=== PATIENT | male | born 1965 | race Caucasian/White ===

== ENCOUNTER → 2019-04-26 08:40 | Outpatient (CLI) | payer MEDICAID | END | disposition home or self-care (01) | LOC: D.HCCARDIO 08:40 | PROVIDERS: ATTEND Internal Medicine Cardiovascular Disease | DX: I20.9 Angina pectoris, unspecified (principal) ==

== ENCOUNTER 2019-06-26 07:38 | Outpatient (CLI) | payer MEDICAID ==
[~2019-06-26] VITALS: Ht 172.7 cm; Wt 87.3 kg
--- NOTE | ~2019-06-26 | HP ---
PATIENT: MARGI MALDONADO MEDICAL RECORD: [id number] ACCOUNT: [id number] LOCATION:[facility] : 65 ADMISSION DATE: 06/26/19 PCP: DAVID PARKINSON MD HISTORY AND PHYSICAL EXAMINATION ADMITTING DIAGNOSES: 1. Chest pain compatible with angina. 2. Hypertension. 3. Abnormal nuclear stress test. 4. Leg pain compatible with claudication. 5. Hypertension. HISTORY OF PRESENT ILLNESS: Mr. Maldonado has no history of ischemic heart disease. He has been having episodes of chest pain, chest discomfort compatible with angina. Risk stratified with stress testing revealing an abnormal nuclear stress test suggestive of multivessel disease, now brought for cardiac catheterization as well he has had claudication, right leg greater than left. PHYSICAL EXAMINATION: CONSTITUTIONAL/GENERAL APPEARANCE: Well nourished, well developed, appears stated age. EYES: Lids and conjunctivae noninjected. No discharge. No pallor. ENT: Lips within normal limit. No cyanosis. No pallor. NECK: Carotid arteries, bilateral normal upstroke. No bruits. No thrills. No jugular venous pressure or distention. CERVICAL LYMPH NODES: Nontender. Nonenlarged. THYROID: Not enlarged. No nodules. CARDIOVASCULAR: Precordial exam, nondisplaced. No heaves or pericardial thrills. Rate and rhythm, regular. Heart sounds, normal S1, normal S2. No S3, no gallop, no rub. Systolic murmur, not heard. Diastolic murmur, not heard. RESPIRATORY: Respiratory effort, unlabored. Normal curvature. No thoracic deformity. No chest wall tenderness. Percussion, resonant. Auscultation, clear. No wheezes, no rales, no rhonchi. ABDOMEN: Soft, nondistended, nontender. No abdominal pain, no vomiting and normal appetite. MUSCULOSKELETAL: No joint tenderness, normal gait, normal tone. SKIN: Warm and dry. OVERALL IMPRESSION: Angina with abnormal nuclear stress test, claudication. We will proceed with coronary angiography and peripheral angiography. Further care depends upon the findings of the angiography. TRANSINT:[id number] Voice Confirmation ID: [id number] DOCUMENT ID: [id number] KHALIF ALBRECHT MD CC: [id number] DICTATION DATE: 06/26/19 1024 PROPOSAL ENGINEER: 06/26/19 111[id number] [place], [place] [id number]
--- NOTE | ~2019-06-26 | HEMODYNAMI ---
PATIENT:MARGI MAURER MEDICAL RECORD: [id number] : 65 LOCATION:[facility] ADMISSION DATE: 06/26/19 Generatedon:06/26/201910:29 Patient name: MARGI MAURER Patient #: [id number] SSN: [id number] : 1965 Date of study: 06/26/2019 Page: Of Hemodynamic Procedure Report Patient Data Patient Demographics Procedure consent was obtained First Name: MARGI Gender: Male Last Name: ERASTO : 1965 Patient #: [id number] Age: 54 year(s) Race: Unknown SSN: [id number] Additional ID: [id number] Contact details [address]: [address] [place] [address] State: [place] City: [place] Zip code: [address] Past Medical History Performed procedures and imaging results Date Procedure Procedure Results Comments Stress testing Positive->Intermediate with SPECT MPI risk Allergies: No known allergies Admission Admission Data Admission Date: 06/26/2019 Admission Time: 7:38 Arrival Date: 06/26/2019 Arrival Time: 0:00 Height (in.): 67.72 BSA: 2 (m2) Height (cm.): 172 BMI: 29.41 (kg/m2) Weight (lbs.): 191.8 Weight (kg.): 87 Lab Results Lab Result Date: 06/26/2019 Lab Result Time: 0:00 Biochemistry Name Units Result Min Max BUN mg/dl 19 --(----)*- 7 18 Creatinine mg/dl 1 --(--*-)-- 0.6 1.3 eGFR ml/min 82.68720 -*(----)-- 90 120 NONAFRICAN CBC Name Units Result Min Max Hematocrit % 49 --(--*-)-- 42 54 Hemoglobin g/dl 16.9 --(---*)-- 13.5 17.5 Procedure Procedure Types Cath Procedure Diagnostic Procedure LHC LHC w/Coronaries Peripheral Cath Diagnostic Procedure Substance Abuse Technician Peripheral Procedures Xmmyf-Vssstcf-Csm-Off AFRO (Diagnostic) Procedure Description Procedure Date Procedure Date: 06/26/2019 Procedure Start Time: 10:15 Procedure End Time: 10:25 Procedure Staff Name Function Chava Aguirre MD Performing Physician Melinda Baron RT Scrub Jasper Muhammad RN Nurse Paulette Greenwood RN Nurse Espinoza Swanson RT Monitor Procedure Data Cath Procedure Fluoroscopy Diagnostic fluoroscopy Total fluoroscopy Time: 1.2 time: 1.2 min min Diagnostic fluoroscopy Total fluoroscopy dose: 340 dose: 340 mGy mGy Contrast Material Contrast Material Type Amount (ml) Isovue 300 86 Entry Location Entry Primary Successful Side Size Upsize Upsize Entry Closure Succes sful Closure Location (Fr) 1 (Fr) 2 (Fr) Remarks Device Remarks Femoral Right 5 Fr Exoseal artery Estimated blood loss: 10 ml Diagnostic catheters Device Type Used For End Catheter Placement MULTIPACK Pigtail 5 Fr Procedure catheter MULTIPACK JL 4.0 5Fr Procedure catheter MULTIPACK 3DRC 5Fr Procedure catheter MULTIPACK Pigtail 5 Fr Procedure catheter Procedure Complications No complications Procedure Medications Medication Administration Route Dosage Oxygen etCO2 Nasal cannula 2 l/min Heparin Flush Bag added to field 2 bags (1000units/500ml NS) 0.9% NaCl I.V. 100 ml/hr Lidocaine 2% added to field 20 Versed I.V. 2 mg Fentanyl I.V. 50 mcg Versed I.V. 2 mg Fentanyl I.V. 50 mcg Versed I.V. 2 mg Hemodynamics Rest BSA: 2 (m2) HGB: 16.9 (g/dl) O2 Consumption: Estimated: 231.72 (ml/min) O2 Consu mption indexed: Estimated:115.86 (ml/min/m) Heart Rate: 62 (bpm) Snapshots Pre Cath Intra NCS Post Cath Vital Signs Time Heart Resp SPO2 etCO2 NIBP (mmHg) Rhythm Pain Sedation Rate (ipm) (%) (mmHg) Status Level (bpm) 9:31:57 57 20 99 0 65/44(55) NSR 0 (11) 10(A) , No pain 9:36:56 53 18 98 0 126/82(98) NSR 0 (11) 10(A) , No pain 9:41:55 59 18 97 0 122/77(94) NSR 0 (11) 10(A) , No pain 9:46:11 69 19 96 0 124/72(104) NSR 0 (11) 10(A) , No pain 9:50:27 65 21 99 0 120/73(98) NSR 0 (11) 10(A) , No pain 9:54:41 68 17 95 0 122/74(89) NSR 0 (11) 10(A) , No pain 9:58:57 63 18 97 0 121/77(86) NSR 0 (11) 10(A) , No pain 10:03:09 74 22 95 0 113/75(97) NSR 0 (11) 10(A) , No pain 10:07:21 64 20 95 0 126/76(95) NSR 0 (11) 10(A) , No pain 10:11:35 61 18 94 0 122/74(90) NSR 0 (11) 10(A) , No pain 10:15:53 61 19 94 0 122/67(84) NSR 0 (11) 9(A) , No pain 10:20:07 62 10 95 0 135/77(106) NSR 0 (11) 9(A) , No pain 10:23:25 69 12 95 0 132/70(110) NSR 0 (11) 10(A) , No pain Medications Time Medication Route Dose Verified Delivered Reason Notes Effectiveness by by 9:31:02 Oxygen etCO2 2 l/min Paulette Paulette for low 02 Nasal Greenwood Greenwood sats cannula RN RN 9:31:19 Heparin Flush added 2 bags Paulette Paulette Per Bag to Greenwood Greenwood protocol (1000units/500ml field RN RN NS) 9:32:02 0.9% NaCl I.V. 100ml/hr Paulette Paulette Per Greenwood Greenwood physician RN RN 9:32:21 Lidocaine 2% added 20ml Paulette Chava for local to vial Krystyna Aguirre MD anesthetic RN 10:11:18 Versed I.V. 2 mg Paulette Paulette for Greenwood Greenwood sedation RN RN 10:11:26 Fentanyl I.V. 50 mcg Paulette Paulette for Greenwood Greenwood sedation RN RN 10:15:18 Versed I.V. 2 mg Paulette Paulette for Greenwood Greenwood sedation RN RN 10:15:23 Fentanyl I.V. 50 mcg Paulette Paulette for Greenwood Greenwood sedation RN RN 10:19:54 Versed I.V. 2 mg Paulette Greenwood sedation RN deck engine operator Log Time Note 9:11:42 Informed consent obtained and on chart 9:12:09 Procedure Status Elective Heart Cath (OP). 9:12:10 Time tracking: Stay late (Procedures after 5:00pm) 9:12:15 Plan of Care:Hemodynamics will remain stable., Cardiac rhythm will remain stable., Comfort level will be maintained., Respiratory function will remain adequate., Patient/ family verbilizes understanding of procedure., Procedure tolerated without complication., Recovers from procedure without complications.. 9:12:23 H&P Date Dictated: 06/26/2019 New H&P dictated by physician.. 9:13:43 Patient allergic to No known allergies 9:14:09 Lab Result : BUN 19 mg/dl 9:14:09 Lab Result : Creatinine 1 mg/dl 9:14:09 Lab Result : eGFR NONAFRICAN 82.86926 ml/min 9:14:09 Lab Result : Hemoglobin 16.9 g/dl 9:14:09 Lab Result : Hematocrit 49 % 9:14:21 Melinda Baron RT(R) (CV) sent for patient. Start room use. 9:14:58 Patient Weight : 191.8 lbs 9:15:07 Patient Height : 67.72 inches 9:15:10 Arrival Date: 06/26/2019 12:00:00 AM 9:18:27 Stress Test: yes; abnormal MULTIVESSEL 9:21:16 Risk of Mortality: .1 9:21:18 Risk of blood transfusion: .1 9:21:20 Risk of DIO: .2 9:25:29 Patient received from Pre/Post Procedure Room to CCL 1 Alert and oriented. Tansferred to table in Supine position. 9:25:32 Warm blankets applied, and tequila hugger turned on for patient comfort. 9:25:32 Correct patient and procedure confirmed by team. 9:25:33 ECG and BP/O2 sat monitors applied to patient. 9:30:23 Vital chart was started 9:31:02 Oxygen 2 l/min etCO2 Nasal cannula was administered by Paulette Greenwood RN; for low 02 sats; Verbal order read back and verified. 9:31:19 Heparin Flush Bag (1000units/500ml NS) 2 bags added to field was administered by Paulette Greenwood RN; Per protocol; Verbal order read back and verified. 9:32:02 0.9% NaCl 100ml/hr I.V. was administered by Paulette Greenwood RN; Per physician; Verbal order read back and verified. 9:32:21 Lidocaine 2% 20ml vial added to field was administered by Chava Aguirre MD; for local anesthetic; Verbal order read back and verified. 9:35:35 Baseline sample Acquired. 9:35:40 Rhythm: sinus rhythm 9:35:42 Full Disclosure recording started 9:35:43 Pre-procedure instructions explained to patient. 9:35:44 Pre-op teaching completed and patient verbalized understanding. 9:35:46 Family in waiting room. 9:35:53 Patient NPO since Midnight. 9:35:55 Is the patient allergic to Iodine/contrast media? No. 9:36:23 ACC The patient was administered the following blood thiners within the last 24 hours: None 9:36:25 Patient diabetic? No. 9:36:28 Previous problem with sedation/anesthesia? No ? 9:36:29 Snore? Yes 9:36:30 Sleep apnea? No 9:36:31 Deviated septum? No 9:36:32 Opens mouth fully? Yes 9:36:32 Sticks out tongue? Yes 9:36:34 Airway obstruction? No ? 9:36:36 Dentures? No ? 9:36:45 Pre procedure: right dorsailis pedis pulse 1+ Palpable, but thready & weak; easily obliterated 9:36:47 Pre procedure: left dorsailis pedis pulse 2+ Normal; easily identifiable; not easily obliterated 9:36:49 Patient pain scale 0/10 ?. 9:36:54 IV patent on arrival in left forearm with 0.9% NaCl at [facility]. 9:36:56 Lab results completed and on chart. 9:37:00 Bilateral groins area was prepped with chlora-prep and draped in sterile fashion 9:37:01 Alarms reviewed by RCriss N. 9:37:01 Sharps counted by scrub and verified by R.N. 10:10:19 Physician arrived 10::19 --------ALL STOP TIME OUT------ 10:10:20 Final Timeout: patient, procedure, and site verified with staff and physician. All members of the team are in agreement. 10:10:22 Bilateral groins site verified by team. 10:10:27 Fire Safety Assessment: A--An alcohol-based skin anteseptic being used preoperatively., C--Open oxygen or nitrous oxide is being used., D--An ESU, laser, or fiber-optic light is being used. 10:10:34 Physical assessment completed. ASA score P 2 - A patient with mild systemic disease as per Chava Aguirre MD. 10:10:37 2) 60-89 Mildly reduced kidney function, and other findings (as for stage 1) point to kidney disease. 10:10:41 Maximum allowable contrast dose (3.7 X eGFR X 0.75)230 ml. 10:10:46 Sedation plan: IV Moderate Sedation Medication:Versed, Fentanyl 10:11:18 Versed 2 mg I.V. was administered by Paulette Greenwood RN; for sedation; Verbal order read back and verified. 10:11:26 Fentanyl 50 mcg I.V. was administered by Paulette Greenwood RN; for sedation; Verbal order read back and verified. 10:11:31 Use device set Femoral Dx 10:11:33 Tegaderm 4 x 4 (1626W) opened to sterile field. 10:11:34 ACIST Manifold (64387) opened to sterile field. 10:11:34 ACIST Hand Control (70916) opened to sterile field. 10:11:35 ACIST Syringe (28495) opened to sterile field. 10:11:36 Bag Decanter (2002S) opened to sterile field. 10:11:36 Medline Cath Pack ([id number]) opened to sterile field. 10:11:38 DIAGNOSTIC Multipack 5Fr catheter set (FI8583) opened to sterile field. 10:11:39 SHEATH 5FR [place] (WID972) opened to sterile field. 10:11:40 EMERALD Guide Wire (892-078) opened to sterile field. 10:14:51 Procedure started. 10:15:00 Local anesthetic to left femerol artery with Lidocaine 2% by Chava Aguirre MD.INITIAL ACCESS ONLY 10:15:18 Versed 2 mg I.V. was administered by Paulette Greenwood RN; for sedation; Verbal order read back and verified. 10:15:23 Fentanyl 50 mcg I.V. was administered by Paulette Greenwood RN; for sedation; Verbal order read back and verified. 10:15:55 A 5 Fr sheath was inserted into the Right Femoral artery 10:16:19 A MULTIPACK Pigtail 5 Fr catheter was advanced over the wire and used for Procedure. 10:16:49 LV angiography performed. 10:16:52 LV gram done using CHOU 10:17:02 EF : 55 % 10:17:07 Injector settings: Ml/sec: 10, Volume: 20, 10:17:52 Catheter removed. 10:17:58 A MULTIPACK JL 4.0 5Fr catheter was advanced over the wire and used for Procedure. 10:18:33 LCA angiography performed. 10:18:36 ACCDominant side:Left 10:18:38 Catheter removed. 10:18:43 A MULTIPACK 3DRC 5Fr catheter was advanced over the wire and used for Procedure. 10:19:08 RCA angiography performed. 10:19:11 Catheter removed. 10:19:39 A MULTIPACK Pigtail 5 Fr catheter was advanced over the wire and used for Procedure. 10:19:54 Versed 2 mg I.V. was administered by Paulette Greenwood RN; for sedation; Verbal order read back and verified. 10:20:14 Abdominal angiogram w/ runoff was performed. 10:20:42 Right leg runoff performed. 10:20:43 Left leg runoff performed. 10:20:49 Catheter removed. 10:20:50 EXOSEAL 5Fr (EX500) opened to sterile field. 10:21:17 Sheath removed intact; hemostasis achieved with Exoseal to the Right Femoral artery. 10:21:34 Procedure ended.(Physican Out) 10:21:47 Fluoroscopy time 01.20 minutes. 10:21:51 Fluoroscopy dose: 340 mGy 10:21:51 Flurop Dose total: 340 10:22:01 Dose Area Product 61077 mGy/cm. 10:22:09 Contrast amount:Isovue 300 86ml. 10:22:12 Maximum allowable dose exceeded? No. 10:22:13 Sharps counted by scrub and verified by R.N. 10:22:16 Insertion/operative site no bleeding no hematoma. 10:22:26 Post-op/insertion site Right Femoral artery dressed using a 4 x 4 and Tegaderm. 10:22:28 Post Procedure Pulses reassessed and unchanged 10:22:30 Post-procedure physical assessment completed. ASA score P 2 - A patient with mild systemic disease as per Chava Aguirre MD. 10:22:34 Post procedure rhythm: unchanged. 10:23:19 Estimated blood loss: 10 ml 10:23:20 Post procedure instruction explained to patient.Patient verbalizes understanding. 10:23:21 Patient needs reinforcement of post procedure teaching. 10:23:34 Procedure type changed to Cath procedure, Diagnostic procedure, LHC, LHC w/Coronaries, Peripheral Cath Diagnostic Procedure, Substance Abuse Technician Peripheral Procedures, Zdcwc-Sdufthr-Cir-Off, AFRO (Diagnostic) 10:24:35 Procedure and supply charges have been captured, reviewed, submitted and are correct. 10:24:40 Procedure Complication : No complications 10:24:43 Vital chart was stopped 10:25:11 LHC Findings: mild to moderate CAD (<70%) 10:25:14 AFRO Findings: PVD: mild to moderate (<70%) 10:25:15 Operative report dictated upon procedure completion. 10:25:15 See physician's report for complete and final results. 10:25:17 Report given to Pre/Post Procedure Room. 10:25:20 Patient transfered to Pre/Post Procedure Room with Stretcher. 10:25:23 Procedure ended. 10:25:23 Full Disclosure recording stopped 10:26:47 End room use (Document Last) 10:27:57 End room use (Document Last) 10:28:48 End room use (Document Last) Device Usage Item Name Manufacture Quantity Catalog Hospital Part Current Minimal L ot# / Number Charge Number Stock Stock Serial# Code Tegaderm 4 3M 1 1626W [id number] 5 x 4 (1626W) ACIST Acist 1 14359 910811 034603 603576 5 Manifold Medical (10367) Systems Inc ACIST Hand Acist 1 51529 975289 442860 624929 5 Control Medical (34877) Systems Inc ACIST Acist 1 91328 391224 653106 438470 20 Syringe Medical (05151) Systems Inc Bag Microtek 1 503882 09162 398907 5 Decanter Medical Inc. () Medline Medline 1 [id number] 619709 64433 678631 5 Cath Pack ([id number]) DIAGNOSTIC Cardinal 1 MK2447 519136 64129 740236 30 Multipack Health 5Fr catheter set (ZY4950) SHEATH 5FR Terumo 1 GXL730 350192 390804 548794 5 [place] (TVN972) EMERALD Cardinal 1 488-047 378809 199313 674143 5 Guide Wire [facility] (505-501) MULTIPACK Cardinal 1 951599 5 Pigtail 5 Health Fr catheter MULTIPACK Cardinal 1 207175 5 JL 4.0 5Fr Health catheter MULTIPACK Cardinal 1 399831 5 3DRC 5Fr Health catheter EXOSEAL 5Fr Cardinal 1 EX500 155651 553399 481482 10 (EX500) Health Signature Audit [place] Stage Time Signature Unsigned Intra-Procedure 06/26/2019 Espinoza Swanson 10:27:57 AM RT(R) Intra-Procedure 06/26/2019 Jasper Muhammad RN 10:28:48 AM Intra-Procedure 06/26/2019 Chava Aguirre 10:29:11 AM [id number] [place] [address]
--- NOTE | ~2019-06-26 | OP ---
PATIENT NAME: MARGI MAURER MEDICAL RECORD: [id number] :65 LOCATION:D.CAT ADMISSION DATE: SURGEON: KHALIF ALBRECHT MD DATE OF OPERATION: 06/26/2019 PROCEDURES: 1. Aortofemoral runoff. 2. Abdominal aortography. 3. Left heart catheterization. 4. Selective coronary angiography. 5. Left ventriculogram. INDICATION: Angina, coronary artery disease, and claudication. DESCRIPTION OF PROCEDURE: After informed consent was obtained and after a detailed explanation of risks, benefits as well as alternative therapies, the patient elected to proceed with angiogram and angioplasty. The left femoral area was prepped and draped in normal sterile fashion. Left femoral artery was cannulated via modified Seldinger technique with placement of 6-Estonian sheath. All catheters exchanged through this sheath. FINDINGS: The left ventriculogram was performed in standard 30-degree CHOU view, reveals good cardiac wall motion, ejection fraction estimated at 55%. SELECTIVE CORONARY ANGIOGRAPHY: 1. Left main, left anterior descending, left circumflex, right coronary artery are all smooth-walled vessels with no angiographic evidence of coronary artery disease. 2. Abdominal aortography and aortofemoral runoff. Abdominal aortography was performed. The catheter was pulled down for aortofemoral runoff. Abdominal aortography reveals no significant abdominal aortic disease, no dissection or aneurysm formation. RIGHT LEG: A. Iliac: The common internal and external iliacs are smooth-walled with no evidence of peripheral vascular disease. B. Femoral system: The common superficial and deep femoral are smooth-walled with no evidence of peripheral vascular disease. C. Popliteal and infrapopliteal vessels are widely patent with good 3-vessel runoff to the foot. LEFT LEG: A. Iliac: The common internal and external iliacs are smooth-walled with no evidence of peripheral vascular disease. B. Femoral system: The common superficial and deep femoral are smooth-walled with no evidence of peripheral vascular disease. C. Popliteal and infrapopliteal vessels are widely patent with good 3-vessel runoff to the foot. OVERALL IMPRESSION: 1. No evidence of peripheral vascular disease present. 2. No evidence of cardiovascular disease, coronary artery disease is present. Normal left ventricular systolic function. TRANSINT:[id number] Voice Confirmation ID: [id number] DOCUMENT ID: [id number] OPERATIVE REPORT [id number] MARGI MAURER KHALIF ALBRECHT MD CC: [id number] DICTATION DATE: 06/26/19 1026 CANVAS GOODS SUPERVISOR: 06/26/19 1510 DEP CLI 06/26/19 [place] [address] [id number] [place] [id number]
[2019-06-26] MEDS ORDERED: HCTZ25 MG PO (07:52)
[2019-06-26] MEDS ORDERED: VERAPAMIL HCL80 MG PO (07:53)
[2019-06-26] MEDS ORDERED: IBUPROFEN800 MG PO (07:55)
[2019-06-26 08:10] VITALS: BP 134/80; Ht 172.7 cm; Wt 87.3 kg
[2019-06-26 08:28] LABS: CALC OSMOLALITY 277 mosm/kg (275-300); CALCIUM 8.8 mg/dL (8.5-10.1); CARBON DIOXIDE 32.8 mmol/L (21.0-32.0); CHLORIDE - SERUM 102 mmol/L (98-107); GLUCOSE 99 mg/dL (74-106); POTASSIUM - SERUM 3.6 mmol/L (3.5-5.1); SODIUM 138 mmol/L (136-145); UREA NITROGEN 19 mg/dL (7-18); eGFR NON AFRICAN AMERICAN 83 mL/min (90-120)
[2019-06-26 08:36] LABS: BASOPHILS 0.3 % (0-2); EOSINOPHILS 2.9 % (0-7); HEMOGLOBIN 16.9 g/dL (13.5-17.5); IMMATURE GRANULOCYTES 0.4 % (0-5); LYMPHOCYTES 48.7 % (15-50); MCH 32.8 pg (26.0-34.0); MCHC 34.5 g/dL (31.0-37.0); MCV 95.1 fL (80.0-100.0); MEAN PLATELET VOLUME 9.6 fL (7.4-10.4); MONOCYTES 8.5 % (2-11); NEUTROPHILS 39.2 % (40-80); PLATELET COUNT 319 10x3/uL (130-400); RBC 5.15 10x6/uL (4.20-6.10); RDW 12.9 % (11.5-14.5)
--- NOTE | 2019-06-26 10:40 | NUR ---
PT REC'D TO ROOM 12 FROM STRATEGIC PLANNING CONSULTANT, VIA STRETCHER. PT AWAKE, ANSWERS QUESTIONS APPROP. MONITORS ESTAB. CM - SR RATE 67. RR 20 UNLAB, POX 98% ON RA. L GROIN SITE C/D/I, PEDAL PULSES EASILY PALP. PT INSTRUCTED TO KEEP L LEG STRAIGHT - FAMILY AT BS. ALARMS ON AND C/L IN REACH.
--- NOTE | 2019-06-26 10:45 | NUR ---
PT BACK FROM PLANT TECHNICIAN/CONTROL ROOM OPERATOR. MONITORS ESTAB. CM - SR RATE 67. PT SINGING OCC. ANSWERS QUESTIONS APPROP. L GROIN SITE C/D/I, PEDAL PULSES EASILY PALP. PT INSTRUCTED TO KEEP LEG STRAIGHT. FAMILY AT BS. ALARMS ON AND C/L IN REACH.
--- NOTE | 2019-06-26 11:00 | NUR ---
L GROIN SITE SOFT, NO S/S HEMATOMA. PULSES EASILY PALP. FAMILY REMAINS AT BS. PT OFFERED WATER. C/L IN REACH.
--- NOTE | 2019-06-26 11:45 | NUR ---
L GROIN SITE C/D/I. PT HOB ELEVATED AND PT GIVEN V8 PER REQUEST. VSS. C/L IN REACH.
--- NOTE | 2019-06-26 11:50 | NUR ---
DR. ALBRECHT IN TO SEE PT AND SPOKE WITH FAMILY. D/C TEACHING IN PROCESS.
--- NOTE | 2019-06-26 12:15 | NUR ---
PT ATE 100% OF SANDWICH TRAY. NO N/V. VSS. CM - NSR RATE 65. L GROIN SITE C/D/I.
--- NOTE | 2019-06-26 12:40 | NUR ---
PIV D/C'D INTACT, DSG APPLIED. D/C INSTRUCTIONS REVIEWED WITH PT AND FAMILY. MEDS REVIEWED. PT ABLE TO SIT AT BS, NO DIZZINESS. DRESSING SELF.
== END 2019-06-26 12:50 | disposition home or self-care (01) ==
LOC: D.CATH 07:38
PROVIDERS: ATTEND Internal Medicine Interventional Cardiology
DX: I25.119 Atherosclerotic heart disease of native coronary artery with unspecified angina pectoris (principal); I10 Essential (primary) hypertension